=== PATIENT | female | born 1995 | race Two or more races ===

== ENCOUNTER 2017-05-04 20:05 | Emergency (ER) | payer BC ==
[~2017-05-04 20:05] MED LIST: IRON SUPPLEMENT1 TAB; PRENATAL1 TA1; ZOFRAN ODT4 MG PO
[2017-05-04] MEDS ORDERED: NO MEDICATIONS (20:18)
[2017-05-04 21:55] LABS: URINE SOURCE CLEAN CATCH
[2017-05-04 21:59] LABS: URINE APPEARANCE CLEAR; URINE BILIRUBIN NEG (NEG); URINE BLOOD TRACE-INTACT (NEG); URINE COLOR YELLOW; URINE GLUCOSE NEG (NORM); URINE KETONE NEG (NEG); URINE LEUKOCYTE ESTERASE TRACE (NEG); URINE NITRATE POS (NEG); URINE PH 6.5 (5-8); URINE PROTEIN NEG (NEG); URINE UROBILINOGEN 0.2 MG/DL (NORM)
[2017-05-04 22:01] LABS: MICRO INDICATED? YES
[2017-05-04 22:02] LABS: CULTURE INDICATED? YES; URINE BACTERIA 1+ (NEG); URINE MUCUS PRESENT; URINE SQUAMOUS EPITHELIAL CELL OCCAS /[HPF]; URINE TRANSITIONAL EPI CELLS FEW /[HPF]
[2017-05-04 22:08] LABS: AMPHETAMINE NEG (NEG); BARBITURATES NEG (NEG); BENZODIAZEPINES POS (NEG); COCAINE NEG (NEG); MARIJUANA POS (NEG); OPIATES NEG (NEG); TRICYCLIC ANTIDEPRESSANTS NEG (NEG); U METHADONE NEG (NEG)
== END 2017-05-05 10:07 | disposition hospice, home (50) ==
LOC: SED 20:05
PROVIDERS: Emergency Medicine
DX: F32.9 Major depressive disorder, single episode, unspecified (principal); N39.0 Urinary tract infection, site not specified; F17.200 Nicotine dependence, unspecified, uncomplicated; Z98.890 Other specified postprocedural states
CPT/HCPCS: 36415; 80307; 81003; 84703; 87086; 87088; 87186; 99285; G0480